=== PATIENT | female | born 1950 | race Caucasian/White ===

== ENCOUNTER → 2019-04-02 12:33 | Outpatient (CLI) | payer MEDICARE, OTHER, SELFPAY ==
--- NOTE | 2019-04-02 | DI.US.S_ITS ---
PROCEDURE: US VENOUS INSUFFICIENCY BILAT INDICATIONS: LOCALIZED EDEMA TECHNIQUE: Real time scanning was performed of the lower extremity venous system, with imaging documentation, as well as Color and pulse Doppler interrogation. COMPARISON: None. FINDINGS: RIGHT LOWER EXTREMITY: The deep veins are normally compressible, and free of intraluminal thrombus. Color and pulse Doppler demonstrate normal intravascular flow. There was reflux noted in the common femoral vein. Greater saphenous vein (GSV): Normally 4 mm or less in diameter, with any reflux less than 0.5 seconds. Saphenofemoral junction (SFJ): 10 mm. No reflux. Proximal GSV: 6 mm. No reflux. Mid GSV: 4 mm. No reflux. Distal GSV: 3 mm. No reflux. Calf GSV: 3 mm, and 3 mm. No reflux. Anterior accessory GSV (AAGSV): 5 mm. Small saphenous vein (SSV): Posterior calf, draining into popliteal vein. Posterior calf: 2 mm. No reflux. Distribution Center Supervisor veins: Not identified. LEFT LOWER EXTREMITY: The deep veins are normally compressible, and free of intraluminal thrombus. Color and pulse Doppler demonstrate normal intravascular flow. There was reflux noted in the common femoral vein. Greater saphenous vein (GSV): Normally 4 mm or less in diameter, with any reflux less than 0.5 seconds. Saphenofemoral junction (SFJ): 10 mm. Reflux noted. Proximal GSV: 4 mm. No reflux. Mid GSV: 4 mm. No reflux. Distal GSV: 4 mm. No reflux. Calf GSV: 4 mm. No reflux. Anterior accessory GSV (AAGSV): 6 mm. No reflux. Small saphenous vein (SSV): Posterior calf, draining into popliteal vein. Posterior calf: 2 mm. No reflux. Distribution Center Supervisor veins: Not identified. IMPRESSION: 1., Proximal greater saphenous veins appear prominent in size bilaterally. Reflux noted in the region of the left saphenofemoral junction. 2. No perforators identified. Dictated by: Burton Hong M.D. on 04/02/2019 at 17:08 Approved by: Burton Hong M.D. on 04/02/2019 at 17:13
--- NOTE | 2019-04-02 | DI.ECHO.S_ITS ---
[place] +---------+ Hospital +---------+ : : [address] : : : : [id number] : : : : Phone: [phone] : [phone]+ Echocardiogram Report + + :Name: MARGO HAGER Study Date: 04/02/2019 Height: 65 in : :[facility] Exam Location: [facility] Weight: 257 lb : : Gender: Female BSA: 2.2 m2 : :: 1950 Age: 69 yrs BP: 142/100 mmHg: :Reason For Study: Localized edema : :Ordering Physician: Remy : :Elena Performed By: Stefani Page : + + Interpretation Summary The left ventricle is not well visualized but grossly appears normal in size with probable normal systolic function with the ejection fraction very grossly estimated to be 60-65%. There are no obvious focal wall motion abnormalities noted but poor endocardial definition reduces the sensitivity for the detection of such. There has been no obvious significant change since the previous study. The right ventricle is not well visualized but grossly appears normal in size with probable normal systolic function and is likely unchanged compared to the previous study. Pulmonary artery pressures cannot be estimated because of the lack of a measurable TR jet velocity. The left atrium is not well visualized but may be severely dilated and likely larger compared to the previous study. The cardiac valves are not well visualized but there is no obvious significant valvular heart disease. The aortic root is mildly dilated and the ascending aorta is moderately enlarged. There is an anterior echo-free space consistent with a fat pad. Procedure: A two-dimensional transthoracic echocardiogram with color flow and Doppler was performed. The study quality was technically difficult. The study quality was technically limited. A contrast injection of Definity was performed to improve assessment of LV function. The heart rate ranged between 56-90 bpm during the study. Left Ventricle: The left ventricle is not well visualized. The left ventricle is grossly normal size. Left ventricular systolic function is probably normal. The ejection fraction is estimated to be 60-65%. There are no obvious focal wall motion abnormalities noted but poor endocardial definition reduces the sensitivity for the detection of such. Diastolic parameters suggest a relaxation abnormality of the left ventricle, consistent with probable normal filling pressures. There has been no significant change since the previous study. Right Ventricle: The right ventricle is not well visualized. The right ventricle grossly appears normal in size with probable normal systolic function. This is unchanged compared to the previous study. Atria: The left atrium is not well visualized. The left atrium is severely dilated. This is likely larger compared to the previous study. Right atrium not well visualized secondary to technical limitations. There is no Doppler evidence for an interatrial shunt. Mitral Valve: The mitral valve is grossly normal. The mitral valve is not well visualized. There is no mitral regurgitation noted. Aortic Valve: The aortic valve is not well visualized. The aortic valve is grossly normal. There is no aortic valve stenosis. There is trace aortic regurgitation. Tricuspid Valve: The tricuspid valve is not well visualized, but is grossly normal. The tricuspid valve is not well visualized. Pulmonary artery pressures cannot be estimated because of the lack of a measurable TR jet velocity. Pulmonic Valve: The pulmonic valve is not well visualized. There is no significant valvular heart disease. Great Vessels: The aortic root is mildly dilated. The ascending aorta is moderately enlarged. The pulmonary is not well visualized. The IVC is of normal diameter and collapses greater than 50% with a sniff. This suggests a low right atrial pressure of 3 mm Hg. Pericardium/ Pleura There is no pericardial effusion. There is an anterior echo-free space consistent with a fat pad. There is no pleural effusion. MMode/2D Measurements & Calculations Ao root diam: 3.8 cm LA A2 area: 26.0 cm2 asc Aorta Diam: 4.0 cm LA A4 area: 29.8 cm2 LA length (vol): 5.7 cm LA vol: 115.4 ml LA vol index: 52.4 ml/m2 IVC diam: 1.7 cm RVD1 (basal): 3.5 cm Doppler Measurements & Calculations Ao V2 max: 155.7 cm/sec LVOT Max Germain: 83.9 cm/sec Ao V2 mean: 108.6 cm/sec LV V1 max P.8 mmHg Ao max P.7 mmHg LV V1 VTI: 19.0 cm Ao mean P.3 mmHg sev ratio: 0.57 Ao V2 VTI: 33.1 cm MV E max germain: 64.9 cm/sec PA V2 max: 81.0 cm/sec MV A max germain: 95.1 cm/sec PA V2 mean: 54.8 cm/sec MV E/A: 0.68 PA mean P.4 mmHg Med Peak E' Germain: 4.3 cm/sec PA Accel Time: 0.09 sec E/E' med: 15.0 Lat Peak E' Germain: 5.0 cm/sec E/E' lat: 13.1 E/e' average: 14.1 MV dec time: 0.19 sec MV P1/2t: 57.8 msec MV P1/2t max germain: 66.3 cm/sec MVA(P1/2t): 3.8 cm2 Reading Physician:YADIRA
== END ==
PROVIDERS: PCP Family Medicine; Visit Provider Internal Medicine Cardiovascular Disease
DX: R60.0 Localized edema (principal); I77.89 Other specified disorders of arteries and arterioles; I87.2 Venous insufficiency (chronic) (peripheral)
CPT/HCPCS: 93306; 93970; Q9957

== ENCOUNTER → 2020-08-09 13:40 | Outpatient (CLI) | payer MEDICARE, OTHER, SELFPAY ==
--- NOTE | 2020-08-09 | DI.ECHO.S_ITS ---
[place] +---------+ Hospital +---------+ : : [address] : : : : [id number] : : : : Phone: [phone] : : [phone]---------+ Echocardiogram Report + + :Name: MARGO HAGER Study Date: 08/09/2020 Height: 65 in : :[facility] Weight: 263 lb: : Gender: Female BSA: 2.2 m2 : :: 1950 Age: 70 yrs : :Reason For Study: EDEMA : :Ordering Physician: MICKEY, : :BENJI Austin Performed By: Lisa Villafuerte : :Referring: BENJI AREVALO : + + Interpretation Summary Technically difficult study. Grossly normal left ventricle size with ejection fraction 60-65%. No obvious valvular abnormality. Comparison is made with the echocardiogram of 04/02/2019, there has been no signficant change. Procedure: A two-dimensional transthoracic echocardiogram with color flow and Doppler was performed. The study quality was technically difficult. Comparison is made with the echocardiogram of 04/02/2019. The heart rate ranged between 72-84 bpm during the study. Left Ventricle: The left ventricle is not well visualized. The left ventricle is grossly normal size. The ejection fraction is estimated to be 60- 65%. There are no focal wall motion abnormalities. Right Ventricle: The right ventricle grossly appears normal in size with probable normal systolic function. Atria: The left atrium is mildly dilated. Right atrial size is normal. There is no Doppler evidence for an interatrial shunt. Mitral Valve: The mitral valve is grossly normal. There is no mitral regurgitation noted. Aortic Valve: The aortic valve is not well visualized. There is no aortic valve stenosis. No aortic regurgitation is present. Tricuspid Valve: The tricuspid valve is not well visualized, but is grossly normal. No tricuspid regurgitation. Pulmonary artery pressures cannot be estimated because of the lack of a measurable TR jet velocity but the IVC suggests a CVP of around 8 mmHg. Pulmonic Valve: The pulmonic valve is not well visualized. There is no pulmonic valvular regurgitation. Great Vessels: The aortic root is not well visualized. The ascending aorta could not be visualized. The IVC is dilated (diameter is greater than 2.1 cm) yet it collapses greater than 50% with a sniff. This suggests a right atrial pressure of 8 mm Hg. Pericardium/ Pleura There is no pericardial effusion. There is an anterior echo-free space consistent with a fat pad. There is no pleural effusion. MMode/2D Measurements & Calculations Ao Arch Diam (Prox Trans): 3.7 cm LA A2 area: 27.7 cm2 LA A4 area: 24.2 cm2 LA length (vol): 6.3 cm LA vol: 90.3 ml LA vol index: 40.6 ml/m2 RA long axis: 5.5 cm RVD1 (basal): 4.3 cm RA area: 18.5 cm2 TAPSE: 2.1 cm RA vol: 52.8 ml RA : 23.7 ml/m2 IVC diam: 2.2 cm Doppler Measurements & Calculations Ao V2 max: 150.6 cm/sec LVOT Max Germain: 88.7 cm/sec Ao V2 mean: 91.2 cm/sec LV V1 max P.1 mmHg Ao max P.1 mmHg LV V1 VTI: 18.4 cm Ao mean P.1 mmHg sev ratio: 0.69 Ao V2 VTI: 26.7 cm MV E max germain: 57.0 cm/sec PA V2 max: 111.9 cm/sec MV A max germain: 94.0 cm/sec PA V2 mean: 73.8 cm/sec MV E/A: 0.61 PA mean P.6 mmHg Med Peak E' Germain: 5.2 cm/sec PA pr(Accel): 44.7 mmHg E/E' med: 10.9 Lat Peak E' Germain: 6.7 cm/sec E/E' lat: 8.6 E/e' average: 9.7 MV dec time: 0.31 sec Electronically signed by: Liban Maynard on Reading Physician:08/09/2020 05:40 PM
== END ==
PROVIDERS: PCP Family Medicine; Referring Provider Family Medicine; Visit Provider Nurse Practitioner
DX: R60.0 Localized edema (principal); R06.02 Shortness of breath
CPT/HCPCS: 93306

== ENCOUNTER → 2021-07-29 08:36 | Outpatient (CLI) | payer MEDICARE, SELFPAY | PROVIDERS: Family Provider Family Medicine; PCP Family Medicine; Referring Provider Family Medicine; Visit Provider Nurse Practitioner Family | DX: I89.0 Lymphedema, not elsewhere classified (principal); L97.821 Non-pressure chronic ulcer of other part of left lower leg limited to breakdown of skin; L97.811 Non-pressure chronic ulcer of other part of right lower leg limited to breakdown of skin; R60.0 Localized edema; E11.622 Type 2 diabetes mellitus with other skin ulcer; L03.115 Cellulitis of right lower limb; L03.116 Cellulitis of left lower limb; R06.02 Shortness of breath | CPT/HCPCS: 99203; 99214 ==

== ENCOUNTER 2021-07-29 10:04 | Emergency (ER) | payer MEDICARE, OTHER, SELFPAY ==
[2021-07-29] VITALS (7 sets, daily range): BP systolic 165–175; BP diastolic 78–111; PULSE 72–82; RESP 18–21; TEMP 36.6; O2SAT 86–99; BMI 46.3
--- NOTE | 2021-07-29 10:21 | DI.RAD.S_ITS ---
PROCEDURE: XR CHEST 1V INDICATIONS: Short of breath TECHNIQUE: One view of the chest was acquired. COMPARISON[facility], [facility], CHEST 2VW, 02/15/2010, 12:19. [facility], CR, XR CHEST 2VW, 02/23/2016, 11:23. FINDINGS: Surgical changes and devices: None. Lungs and pleura: An incomplete inspiratory result is noted, causing a crowded appearance to the lung markings. No focal infiltrates are seen. No pneumothorax or significant pleural effusions are seen. Mild generalized interstitial prominence can be seen. Mediastinum: The cardiac contours are moderately enlarged. The aorta demonstrates calcification and tortuosity. Bones and chest wall: No suspicious bony lesions. Age-appropriate bony degenerative changes are seen. Overlying soft tissues appear unremarkable. IMPRESSION: Cardiomegaly and mild interstitial prominence. Please consider early CHF. Low lung volumes. Dictated by: Richard Hu M.D. on 07/29/2021 at 9:53 Approved by: Richard Hu M.D. on 07/29/2021 at 9:54
[2021-07-29 10:35] LABS: Add Manual Diff / Slide Review NO; Basophils Absolute Auto 100 /uL (0-100); Basophils Percent Auto 1.1 % (0-2); Eosinophils Absolute Auto 200 /uL (0-450); Eosinophils Percent Auto 3.2 % (2-4); Hematocrit 42.4 % (36-46); Hemoglobin 13.7 g/dL (12.0-16.0); Lymphocytes Absolute Auto 1100 /uL (1100-4500); Lymphocytes Percent Auto 17.2 % (25-40); Mean Corpuscular HGB Conc 32.2 % (30-36); Mean Corpuscular Hemoglobin 29.2 PG (26-34); Mean Corpuscular Volume 90.8 fL (80-100); Monocytes Absolute Auto 500 /uL (0-900); Monocytes Percent Auto 7.9 % (3-14); Neutrophils Absolute Auto 4700 /uL (1500-7000); Neutrophils Percent Auto 70.6 % (50-75); Platelet Count 200 X10^3/uL (150-400); Red Blood Cell Count 4.67 X10^6/uL (4.0-5.2); Red Cell Distribution Width 15.6 % (11.6-14.8); White Blood Cell Count 6.6 X10^3/uL (4.5-11.0)
[2021-07-29 10:39] LABS: COVID19 -Nasal RAPID Negative (Negative)
[2021-07-29 10:41] LABS: INR 1.1 (0.9-1.3); Prothrombin Time 12.5 SECONDS (10.1-12.7)
[2021-07-29 11:03] LABS: Lactate (Lactic Acid) 1.3 mmol/L (0.7-2.1)
[2021-07-29 11:04] LABS: Alanine Aminotransferase 13 IU/L (<35); Albumin 4.1 g/dL (3.5-5.0); Albumin Globulin Ratio 1.2 (1.0-2.8); Alkaline Phosphatase 103 U/L (38-126); Aspartate Aminotransferase 21 IU/L (14-36); BUN Creatinine Ratio 21.1 (6-22); Bilirubin Total 0.6 mg/dL (0.2-1.3); Blood Urea Nitrogen 12 mg/dL (7-17); Calcium 9.2 mg/dL (8.4-10.2); Carbon Dioxide 38 mmol/L (22-32); Chloride 97 mmol/L (98-107); Estimated Glomerular Filt Rate > 60.0 mL/min (>60); Globulin 3.4 g/dL (1.7-4.1); Glucose 230 mg/dL (80-110); HEMOLYSIS < 15 (0-50); Potassium 3.5 mmol/L (3.4-5.1); Sodium 139 mmol/L (137-145); Total Protein 7.5 g/dL (6.3-8.2)
[2021-07-29 11:12] LABS: NT-proBNP (BNP-Adult 18+) 219 pg/mL (<125)
--- NOTE | 2021-07-29 11:30 | ED_ITS ---
HPI - SOB/Dyspnea General Chief Complaint: Shortness of Breath/Dyspnea Stated Complaint: SOB/retaining fluid Time Seen by Provider: 07/29/21 11:20 Source: patient Mode of arrival: Wheelchair Limitations: no limitations History of Present Illness HPI Narrative: This is a 61-year-old female comes emergency department with complaint of retaining fluids in her lower extremities in wounds on both legs. Patient has chronic shortness of breath which she states is no worse than normal. She denies chest pain, lightheadedness, nausea or vomiting. Her other new GI or urinary symptoms. [facility] through the . Sounds like she was diuresed significantly and had improvement. She is on O2 1-2 L normally. Today when she went to Wound Care she did not take her oxygen with her. And they were concerned about her breathing and sent her here for evaluation. Patient is on medications for asthma or COPD, insulin for diabetes, Toprol, Lasix 60 mg daily and K-Dur. Patient states she was discharged home with antibiotics by her primary care physician for 10 days. She has not been on any recently. Patient states that she has seen a senior program manager and they told her that her heart was fine. And that they did not know why she had swelling in her lower extremities. She was also seeing a hypertrichologist at 1 point but has not been back recently. Patient is not anticoagulated be on aspirin. Her primary care is Marguerite Johnson. She has not had any prior cardiac stents or interventions. She states she had an echo a year ago. 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 Braxton remotely. Related Data Home Medications Medication Instructions Recorded Confirmed CODEINE/ACETAMINOPHEN 0 tab PO PRN #0 08/23/12 (Acetaminophen/Cod #3 Tablet) VITAMIN B COMPLEX 1 cap PO BID #0 08/23/12 ascorbic acid (vitamin C) 500 mg 500 mg PO QDAY #0 08/23/12 tablet glipizide 10 mg tablet, extended 10 mg PO HS #0 08/23/12 release 24 hr metformin 500 mg tablet,extended 500 mg PO BID #0 08/23/12 release 24 hr (Glucophage XR) levothyroxine 150 mcg tablet 150 mcg PO QDAY #0 tab 08/27/13 triamterene 75 1 tab PO #0 tab 08/27/13 mg-hydrochlorothiazide 50 mg tablet (Maxzide) Previous Rx's Medication Instructions Recorded albuterol sulfate 90 mcg/actuation 2 puff INH PRN #17 gm 08/23/12 aerosol inhaler (Proventil HFA) cephalexin 500 mg capsule 500 mg PO Q6H #28 cap 07/29/21 furosemide 80 mg tablet (Lasix) 80 mg PO DAILY #7 tab 07/29/21 Allergies Allergy/AdvReac Type Severity Reaction Status Date / Time propoxyphene [From Darvon] Allergy Verified 07/29/21 10:22 Review of Systems Review of Systems ROS Unobtainable: All systems reviewed & are unremarkable except as noted in HPI and below Exam Narrative Exam Narrative: GENERAL: Alert and oriented x three, obese female in mild distress. Patient is on nasal cannula 2 L in the room at 97%. HEENT: Head normocephalic, atraumatic, EOMI, pupils reactive, face symmetric, moist mucous membranes NECK: Supple, full range of motion CARDIOVASCULAR: Regular rate and rhythm without murmurs, rubs or gallops. RESPIRATORY: Breath sounds equal bilaterally, no wheezes rales or rhonchi. No tachypnea accessory muscle use. ABDOMEN: Soft, nontender. Normoactive bowel sounds all 4 quadrants. No guarding or rebound, rigidity, no mass : No CVA tenderness EXTREMITIES: Normal range of motion, patient has significant edema bilateral lo wer extremities with some erythema and the binge portions. There is some mild skin breakdown but no large open wounds into the subcutaneous tissue. There is some mild warmth to the area. Neurovascularly intact. Unable to palpate pulses secondary to habitus but to patient's cap refill is less than 2 seconds in all 10 toes. NEUROLOGICAL: Cranial nerves II through XII grossly intact. Moving all extremities SKIN: Warm, dry, no petechiae, no rashes or lesions noted other than above. Initial Vital Signs Initial Vital Signs: Vital Signs Temperature 97.9 F 07/29/21 10:15 Pulse Rate 82 07/29/21 10:15 Blood Pressure 175/81 H 07/29/21 10:15 Pulse Oximetry 86 L 07/29/21 10:15 Course Orders Ordered: Discontinued Medications Furosemide (Furosemide 40 Mg/4 Ml Vial) 40 mg IV NOW ONE Stop: 07/29/21 12:08 Last Admin: 07/29/21 12:05 Dose: 40 mg Documented by: JOSEFINA Vital Signs Vital signs: Vital Signs - 8 hr 07/29/21 10:15 07/29/21 11:05 07/29/21 11:06 Temperature 97.9 F Pulse Rate 82 76 75 Respiratory Rate 20 18 Blood Pressure 175/81 H 170/78 H 170/78 H Pulse Oximetry 86 L 97 95 07/29/21 11:36 07/29/21 12:00 07/29/21 12:11 Temperature Pulse Rate 72 73 73 Respiratory Rate 21 Blood Pressure Pulse Oximetry 93 99 99 07/29/21 12:12 Temperature Pulse Rate Respiratory Rate Blood Pressure 165/111 H Pulse Oximetry MDM - SOB/Dyspnea Lab Data Result diagrams: 07/29/21 10:25 07/29/21 10:25 Labs: Lab Results 07/29/21 07/29/21 07/29/21 Range/Units 10:11 10:24 10:25 WBC 6.6 (4.5-11.0) X10^3/uL RBC 4.67 (4.0-5.2) X10^6/uL Hgb 13.7 (12.0-16.0) g/dL Hct 42.4 (36-46) % MCV 90.8 (80-100) fL MCH 29.2 (26-34) PG MCHC 32.2 (30-36) % RDW 15.6 H (11.6-14.8) % Plt Count 200 (150-400) X10^3/uL Neut % (Auto) 70.6 (50-75) % Lymph % (Auto) 17.2 L (25-40) % [place] % (Auto) 7.9 (3-14) % Eos % (Auto) 3.2 (2-4) % Baso % (Auto) 1.1 (0-2) % Neut # (Auto) 4700 (1378-8211) /uL Lymph # (Auto) 1100 (6864-6583) /uL [place] # (Auto) 500 (0-900) /uL Eos # (Auto) 200 (0-450) /uL Baso # (Auto) 100 (0-100) /uL PT (10.1-12.7) SECONDS INR (0.9-1.3) Sodium (137-145) mmol/L Potassium (3.4-5.1) mmol/L Chloride (98-107) mmol/L Carbon Dioxide (22-32) mmol/L BUN (7-17) mg/dL Creatinine (0.52-1.04) mg/dL Estimated GFR (>60) mL/min BUN/Creatinine Ratio (6-22) Glucose (80-110) mg/dL Lactate (0.7-2.1) mmol/L Calcium (8.4-10.2) mg/dL Total Bilirubin (0.2-1.3) mg/dL AST (14-36) IU/L ALT (<35) IU/L Alkaline Phosphatase (38-126) U/L Total Creatine Kinase 26 L (30-135) U/L CK-MB (CK-2) TNP CK-MB (CK-2) Rel Index TNP Troponin I < 0.012 (0.01-0.034) ng/mL NT-Pro-B Natriuret Pep (<125) pg/mL Total Protein (6.3-8.2) g/dL Albumin (3.5-5.0) g/dL Globulin (1.7-4.1) g/dL Albumin/Globulin Ratio (1.0-2.8) SARS-CoV-2 (PCR) Negative (Negative) 07/29/21 07/29/21 07/29/21 Range/Units 10:25 10:25 10:25 WBC (4.5-11.0) X10^3/uL RBC (4.0-5.2) X10^6/uL Hgb (12.0-16.0) g/dL Hct (36-46) % MCV (80-100) fL MCH (26-34) PG MCHC (30-36) % RDW (11.6-14.8) % Plt Count (150-400) X10^3/uL Neut % (Auto) (50-75) % Lymph % (Auto) (25-40) % [place] % (Auto) (3-14) % Eos % (Auto) (2-4) % Baso % (Auto) (0-2) % Neut # (Auto) (1288-7169) /uL Lymph # (Auto) (8210-3588) /uL [place] # (Auto) (0-900) /uL Eos # (Auto) (0-450) /uL Baso # (Auto) (0-100) /uL PT 12.5 (10.1-12.7) SECONDS INR 1.1 (0.9-1.3) Sodium 139 (137-145) mmol/L Potassium 3.5 (3.4-5.1) mmol/L Chloride 97 L (98-107) mmol/L Carbon Dioxide 38 H (22-32) mmol/L BUN 12 (7-17) mg/dL Creatinine 0.57 (0.52-1.04) mg/dL Estimated GFR > 60.0 (>60) mL/min BUN/Creatinine Ratio 21.1 (6-22) Glucose 230 H (80-110) mg/dL Lactate 1.3 (0.7-2.1) mmol/L Calcium 9.2 (8.4-10.2) mg/dL Total Bilirubin 0.6 (0.2-1.3) mg/dL AST 21 (14-36) IU/L ALT 13 (<35) IU/L Alkaline Phosphatase 103 (38-126) U/L Total Creatine Kinase (30-135) U/L CK-MB (CK-2) CK-MB (CK-2) Rel Index Troponin I (0.01-0.034) ng/mL NT-Pro-B Natriuret Pep 219 H (<125) pg/mL Total Protein 7.5 (6.3-8.2) g/dL Albumin 4.1 (3.5-5.0) g/dL Globulin 3.4 (1.7-4.1) g/dL Albumin/Globulin Ratio 1.2 (1.0-2.8) SARS-CoV-2 (PCR) (Negative) Urine Dip Bedside Urine Glucose Negative Bedside Urine Bilirubin - Negative Bedside Urine Ketone - Negative Urine Specific [place] 1.020 Bedside Urine Occult Blood - Negative Bedside Urine Protein - Negative Bedside Urine Urobilinogen - Negative Bedside Urine Nitrite - Negative Bedside Urine Leukocytes - Negative Esterase Imaging Data Chest x-ray: Radiologist's Impression: Swathi Dowd??71??F??1950 ? Allergy/Adv: propoxyphene Close Chest X-Ray (Signed) Richard Hu - 07/29/21 Echocardiogram Ultrasound (Signed) Liban Cool - 08/09/20 Venous Evaluation (Signed) Burton Hong - 04/02/19 Echocardiogram Ultrasound (Signed) Kehinde Peters - 04/02/19 Radiology - Historical 12/18/17 Launch?[address] [address] XRay Report Signed Patient: Swathi Dowd MR#: [id number] : 1950 Acct:[id number] Age/Sex: 71 / F Date of Service: 07/29/21 Loc: ED Accession Number: [id number] ?? Procedure: XR chest 1V Ordering Provider: Jill Ellison D.O. PROCEDURE:? XR CHEST 1V ? INDICATIONS:? Short of breath ? TECHNIQUE:? One view of the chest was acquired.? ? [place] [facility] [place], 12:19.? [facility], CR, XR CHEST 2VW, 02/23/2016, 11:23. ? FINDINGS:? ? Surgical changes and devices:? None.? ? Lungs and pleura:? An incomplete inspiratory result is noted, causing a crowded appearance to the lung markings.? No focal infiltrates are seen.? No pneumothorax or significant pleural effusions are seen. ? Mild generalized interstitial pr ominence can be seen.? ? Mediastinum:? The cardiac contours are moderately enlarged. The aorta demon strates calcification and tortuosity. ? Bones and chest wall:? No suspicious bony lesions.? Age-appropriate bony degenerative changes are seen.? Overlying soft tissues appear unremarkable.? ? ? IMPRESSION:? Cardiomegaly and mild interstitial prominence.? Please consider early CHF. ? Low lung volumes. ? ? Dictated by: Richard Hu M.D. on 07/29/2021 at 9:53 ? ? Approved by: Richard Hu M.D. on 07/29/2021 at 9:54?? ECG Data Attestation: I personally reviewed and interpreted this ECG as follows: Prior ECG tracings: not available for review Interpretation: Sinus rhythm rate of 71 CA 180 QRS of 98 QTC 493. Q-wave in lead 3. Inverted T-wave in V1. No other acute EKG changes appreciated. MDM Narrative Medical decision making narrative: This is a 71-year-old female who has chronic airway disease, likely CHF who has been on 60 mg of Lasix but would be appropriate to increase your Lasix at this time. Patient's BNP is not particularly elevated. We did discuss whether not she never had a sleep apnea study which she has not. We discussed this would likely be beneficial to her. She was also encouraged to follow up with her primary care at [facility] as well as her respiratory physician and wound care. Patient states she is at her baseline in terms of her breathing. Discussed with patient I think she would benefit from diuresis as well as continue to follow with wound care. She does have weepage. Unclear if there truly cellulitic but she does have some mild warmth and erythema and was started on oral antibiotic. Discharge Plan Departure Patient Disposition: Home Clinical Impression: CHF (congestive heart failure), Bilateral edema of lower extremity, Bilateral cellulitis of lower leg Instructions: DI for Heart Failure Activity Restrictions/Additional Instructions: Your labs today show major changes today. Please increase your Lasix to 80 mg daily from 60mg daily. You do need to follow up with your primary care physician in the next week to adjust your diuretics. Continue other home medications as prescribed. They may be helpful to have you on a short course of antibiotics. Prescription sent to the ED DOD pharmacy at [facility]. Please call wound care to follow-up. You do need some additional diuresis to help the swelling in your legs but they will need to help you with your long- term skin issues. Please return for fevers, new chest pain shortness of breath lightheadedness or passing out, rapidly worsening swelling, increasing redness, foul odor or other new or concerning symptoms. Prescriptions: New furosemide [Lasix] 80 mg tablet 80 mg PO DAILY Qty: 7 RF: 0 cephalexin 500 mg capsule 500 mg PO Q6H Qty: 28 RF: 0 No Action glipizide 10 MG tablet extended release 24hr 10 mg PO HS Qty: 0 RF: 0 ascorbic acid (vitamin C) 500 MG tablet 500 mg PO QDAY Qty: 0 RF: 0 metformin [Glucophage XR] 500 MG tablet extended release 24 hr 500 mg PO BID Qty: 0 RF: 0 CODEINE/ACETAMINOPHEN (Acetaminophen/Cod #3 Tablet) 0 tab PO PRN Qty: 0 RF: 0 VITAMIN B COMPLEX 1 cap PO BID Qty: 0 RF: 0 albuterol sulfate [Proventil HFA] 90 MCG/PUFF HFA aerosol inhaler 2 puff INH PRN Qty: 17 RF: 0 levothyroxine 150 MCG tablet 150 mcg PO QDAY Qty: 0 RF: 0 triamterene-hydrochlorothiazid [Maxzide] 75 MG/50 MG tablet 1 tab PO Qty: 0 RF: 0 Referrals: Marguerite Momin MD [Primary Care Provider] -
[2021-07-29 11:49] LABS: Creatine Kinase 26 U/L (30-135)
[2021-07-29 12:02] LABS: Troponin I < 0.012 ng/mL (0.01-0.034)
[2021-07-29] MEDS: FUROSEMIDE 40 MG/4 ML VIAL IV (12:05)
== END 2021-07-29 12:29 | disposition home or self-care (01) ==
PROVIDERS: Emergency Provider Emergency Medicine; Family Provider Family Medicine; PCP Internal Medicine
DX: I50.9 Heart failure, unspecified (principal); R60.0 Localized edema; L03.116 Cellulitis of left lower limb; L03.115 Cellulitis of right lower limb; Z20.822 Contact with and (suspected) exposure to COVID-19; I89.0 Lymphedema, not elsewhere classified; L97.821 Non-pressure chronic ulcer of other part of left lower leg limited to breakdown of skin; L97.811 Non-pressure chronic ulcer of other part of right lower leg limited to breakdown of skin; E11.622 Type 2 diabetes mellitus with other skin ulcer; R06.02 Shortness of breath
CPT/HCPCS: 36415; 71045; 80053; 81003; 82550; 83605; 83880; 84484; 85025; 85610; 87635; 93005; 93010; 96374; 99203; 99214; 99284; C9803; J1940

== ENCOUNTER → 2021-08-26 09:47 | Outpatient (CLI) | payer MEDICARE, OTHER, SELFPAY | PROVIDERS: Family Provider Family Medicine; PCP Internal Medicine; Referring Provider Internal Medicine; Visit Provider Nurse Practitioner Family | DX: L97.811 Non-pressure chronic ulcer of other part of right lower leg limited to breakdown of skin (principal); L97.821 Non-pressure chronic ulcer of other part of left lower leg limited to breakdown of skin; L08.9 Local infection of the skin and subcutaneous tissue, unspecified; I89.0 Lymphedema, not elsewhere classified; J44.9 Chronic obstructive pulmonary disease, unspecified; R06.02 Shortness of breath; E11.65 Type 2 diabetes mellitus with hyperglycemia | CPT/HCPCS: 87070; 87075; 87077; 87186; 87205; 97597; 99214 ==